=== PATIENT | male | born 2005 | race Caucasian/White ===

== ENCOUNTER 2023-03-21 05:34 | Emergency (ER) | payer BC ==
[2023-03-21] MEDS ORDERED: Sodium Chloride 0.9% 10 ML Syringe FLUSH PRN (05:36)
[2023-03-21] MEDS ORDERED: ALPRAZolam 0.25 MG Tab PO ONE (05:40)
[2023-03-21 06:00] LABS: BASOPHILS ABSOLUTE AUTO 0.01 K/uL (0.00-0.20); EOSINOPHILS ABSOLUTE AUTO 0.08 K/uL (0.00-0.50); EOSINOPHILS PERCENT AUTO 0.4 % (0.0-5.0); HEMATOCRIT 29.2 % (39.0-49.0); HEMOGLOBIN 9.7 g/dL (13.1-16.8); LYMPHOCYTES ABSOLUTE AUTO 9.19 K/uL (0.50-3.50); LYMPHOCYTES PERCENT AUTO 43.2 % (10.0-50.0); MEAN CORPUSCULAR HEMOGLOBIN 29.9 pg (28.2-33.3); MEAN CORPUSCULAR HGB CONC 33.2 g/dL (31.7-36.0); MEAN CORPUSCULAR VOLUME 90.1 fL (84.0-98.0); MONOCYTES ABSOLUTE AUTO 1.71 K/uL (0.00-1.00); NEUTROPHILS ABSOLUTE AUTO 10.27 K/uL (1.40-7.00); NEUTROPHILS PERCENT AUTO 48.4 % (45.0-80.0); PLATELET COUNT,PLT 249 K/uL (150-350); RED BLOOD CELL COUNT 3.24 M/uL (4.33-5.41); RED CELL DISTRIBUTION WIDTH 12.5 % (11.2-14.1); WHITE BLOOD CELL COUNT,WBC 21.3 K/uL (4.0-10.2)
[2023-03-21 06:14] LABS: ALANINE AMINOTRANSFERASE,ALT 19 U/L (12-78); ALBUMIN 3.5 g/dL (3.4-5.0); ALKALINE PHOSPHATASE 63 IU/L (46-116); ANION GAP 13.8 meq/L (7-15); ASPARTATE AMNIOTRANSFERASE,AST 15 U/L (15-37); BILIRUBIN TOTAL 0.3 mg/dL (0.2-1.0); BLOOD UREA NITROGEN,BUN 61 mg/dL (7-18); CALCIUM 8.1 mg/dL (8.5-10.1); CARBON DIOXIDE,CO2 27.6 mmol/L (21.0-32.0); CHLORIDE,CL 99 mmol/L (98-107); GLUCOSE RANDOM 106 mg/dL (70-99); MAGNESIUM 1.5 mg/dL (1.8-2.4); POTASSIUM,K 3.4 mmol/L (3.5-5.1); PRO B-TYPE NATRIUR PEPT,BNPPRO 352 pg/mL (0-125); PROTEIN TOTAL,TP 7.1 g/dL (6.4-8.2); SODIUM,NA 137 mmol/L (136-145)
[2023-03-21 06:24] LABS: CREATININE 3.43 mg/dL (0.51-1.17); ESTIMATED GFR 25 mL/min (>=60)
[2023-03-21] MEDS ORDERED: Aluminum Hydroxide/Magnesium Hydroxide/Simethicone Susp 30 ML Cup PO ONE (07:12)
[2023-03-21] MEDS ORDERED: Acetaminophen 325 MG Tab PO ONE (07:46)
== END 2023-03-21 10:40 ==
LOC: LL.ED 05:34
DX: R07.89 Other chest pain (principal); E83.42 Hypomagnesemia; R79.89 Other specified abnormal findings of blood chemistry; N18.9 Chronic kidney disease, unspecified
CPT/HCPCS: 36415; 71046; 71250; 80053; 83605; 83735; 83880; 84484; 85025; 85379; 93005; 93010; 96365; 99284; 99285-25; A9270-GY; J3475

== ENCOUNTER 2023-09-04 03:30 | Emergency (ER) | payer OTHER, BC | END 2023-09-04 04:35 | disposition home or self-care (01) | LOC: LL.ED 03:30 | DX: S09.93XA Unspecified injury of face, initial encounter (principal); W31.9XXA Contact with unspecified machinery, initial encounter; Y99.0 Civilian activity done for income or pay | CPT/HCPCS: 70150; 99283 ==